=== PATIENT | female | born 1970 | race Caucasian/White ===

== ENCOUNTER 2022-05-07 11:42 | Outpatient (CLI) | payer MEDICARE, MEDICAID, SELFPAY | END 2022-05-07 11:43 | disposition home or self-care (01) | LOC: DI.CARD 11:43 | PROVIDERS: PCP Internal Medicine; Visit Provider Internal Medicine Cardiovascular Disease | CPT/HCPCS: 93010 ==

== ENCOUNTER 2022-06-25 08:58 | Outpatient (CLI) | payer MEDICARE, MEDICAID, SELFPAY ==
--- NOTE | 2022-06-25 08:45 | RT.EKG_ITS ---
APPROVED REPORT Exam: Resting ECG Reason for Exam: palpitations Patient Location: O HR:64 bpm ECG Measurements Heart Rate 64 AXIS NC 129 P -4 QRSd 87 QRS 22 QT 377 T 4 QTc 389 Conclusion Sinus rhythm...normal P axis, V-rate 50- 99 Normal Electrocardiogram
== END 2022-06-25 08:59 | disposition home or self-care (01) ==
LOC: DI.CARD 08:59
PROVIDERS: PCP Internal Medicine; Visit Provider Internal Medicine Cardiovascular Disease
DX: R00.2 Palpitations (principal); R55 Syncope and collapse
CPT/HCPCS: 93010

== ENCOUNTER → 2022-06-25 10:53 | Outpatient (BNVA) | payer MEDICARE, MEDICAID, SELFPAY | PROVIDERS: PCP Internal Medicine; Referring Provider Internal Medicine; Visit Provider Internal Medicine Cardiovascular Disease | DX: R55 Syncope and collapse (principal); R00.2 Palpitations; R73.03 Prediabetes; G47.33 Obstructive sleep apnea (adult) (pediatric) | CPT/HCPCS: 93005; 99202 ==

== ENCOUNTER 2022-11-24 08:42 | Outpatient (CLI) | payer MEDICARE, MEDICAID, SELFPAY ==
--- NOTE | 2022-11-24 08:15 | DI.RAD_ITS ---
Exam(s) XR KNEE LT 2V AP,LAT EXAM: XR KNEE LT 2V AP,LAT h CLINICAL HISTORY: left knee pain. TECHNIQUE: 2D digital imaging was performed. COMPARISON: MR MR KNEE LT W/WO CONTRAST from 10/08/2022 FINDINGS: Two views: No evidence of acute fracture. Small amount of increased joint fluid. No degenerative changes. No ost eochondral defects. No osteophytes nor joint space narrowing. There is a bone lesion in the proximal tibial epiphysis-metaphysis noted, as described on recent outs [facility] MRI. This has appearance of a cartilage lesion-probable enchondroma. There is some surrounding ma rrow hypo density, although I note on the recent MRI study that there was no prominent surrounding ma rrow edema. IMPRESSION: Proximal tibial bone lesion as described above. Recommend whole body nuclear bone scan. Discussed by phone with orthopedic provider. DATA REPOSITORY: RADIATION DOSE DELIVERED:
== END 2022-11-24 08:43 | disposition home or self-care (01) ==
LOC: DIORS 08:43
PROVIDERS: PCP Internal Medicine; Referring Provider Internal Medicine; Visit Provider Physician Assistant
DX: M25.562 Pain in left knee (principal); M89.9 Disorder of bone, unspecified
CPT/HCPCS: 99214; 73560